=== PATIENT | male | born 1970 | race Two or more races ===

== ENCOUNTER 2021-11-18 02:40 | Emergency (ER) | payer MEDICAID ==
[~2021-11-18] VITALS: Ht 165.1 cm; Wt 81.6 kg
--- NOTE | 2021-11-18 04:10 | NUR ---
BIBS C/O DOG BITE TO LEFT CHIN AREA. +LAC TDAP NOT UTD. PLACED IN BED 1. EXAMINATION OF WOUND DONE BY DR MOYER.
[2021-11-18] MEDS ORDERED: TDAP [DIPH/PERTUSSIS/TET] 0.5 ML VIAL IM ONE ×2 (04:30→04:36)
[2021-11-18] MEDS ORDERED: AMOX-430 PO (04:59)
[2021-11-18] MEDS ORDERED: AMOX/CLAVULANATE 875 MG TABLET PO ONE (05:00)
--- NOTE | 2021-11-18 05:05 | NUR ---
SUTURING OF WOUND DONE. TDAP GIVEN, 1ST DOSE OF AUGMENTIN PO GIVEN
[2021-11-18] MEDS ORDERED: AMOX/CLAVULANATE 875 MG TABLET ONE (05:11)
--- NOTE | 2021-11-18 05:18 | NUR ---
Patient discharged to home in stable condition. Written and verbal after care instructions given. Patient verbalizes understanding of instruction.
[2021-11-18 05:22] VITALS: BP 150/66
== END 2021-11-18 05:22 | disposition home or self-care (01) ==
LOC: ER 02:47
DX: S01.511A Laceration without foreign body of lip, initial encounter (principal); S01.81XA Laceration without foreign body of other part of head, initial encounter; Z79.899 Other long term (current) drug therapy; W54.0XXA Bitten by dog, initial encounter; Y93.89 Activity, other specified; Y92.89 Other specified places as the place of occurrence of the external cause; Y99.8 Other external cause status
CPT/HCPCS: 90715